=== PATIENT | female | born 1985 | race Caucasian/White ===

== ENCOUNTER 2020-05-02 16:00 | Inpatient (IN) | payer OTHER, SELFPAY ==
[~2020-05-02] VITALS: Ht 149.9 cm; Wt 68.0 kg
[2020-05-02] MEDS ORDERED: LACT1CAP63 PO (16:31)
[2020-05-02] MEDS ORDERED: PNV91TAB10 PO (16:31)
[2020-05-02] MEDS ORDERED: VITD400 PO (16:31)
[2020-05-02] MEDS ORDERED: CARBOPROST 250 MCG/ML AMP IM PRN (16:45)
[2020-05-02] MEDS ORDERED: LACTATED RINGERS 500 ML IV ONE (16:45)
[2020-05-02] MEDS ORDERED: METHYLERGONOVINE 0.2 MG/ML AMP IM PRN (16:45)
[2020-05-02] MEDS ORDERED: LACTATED RINGERS 500 ML IV SCH (16:57)
[2020-05-02 17:12] LABS: BASOPHILS % (AUTO) 0.2 % (0.0-2.0); EOSINOPHILS % (AUTO) 0.4 % (0.0-4.0); HEMATOCRIT 38.9 % (36-48); HEMOGLOBIN 12.8 g/dL (12.0-16.0); LYMPHOCYTES # (AUTO) 1.1 K/uL (2.5-16.5); LYMPHOCYTES % (AUTO) 13.3 % (20.5-51.1); MEAN CORPUSCULAR HEMOGLOBIN 27 pg (27-31); MEAN CORPUSCULAR HGB CONC 33 g/dL (33-37); MEAN CORPUSCULAR VOLUME 82.3 fL (80-94); MONOCYTES # (AUTO) 0.5 K/uL (0.8-1.0); MONOCYTES % (AUTO) 5.9 % (1.7-9.3); NEUTROPHILS # (AUTO) 6.5 K/uL (1.8-7.7); NEUTROPHILS % (AUTO) 80.2 % (42.2-75.2); PLATELET COUNT (AUTO) 178 K/uL (140-450); RED BLOOD CELL COUNT(AUTO) 4.73 MIL/uL (4.20-5.40); WHITE BLOOD COUNT (AUTO) 8.2 K/uL (4.8-10.8)
[2020-05-02 17:17] LABS: APPEARANCE,URINE CLEAR (CLEAR); BILIRUBIN,URINE NEGATIVE (NEGATIVE); BLOOD, URINE NEGATIVE (NEGATIVE); COLOR,URINE YELLOW (YELLOW); LEUKOCYTE ESTERASE ,URINE NEGATIVE (NEGATIVE); NITRITE, URINE NEGATIVE (NEGATIVE); UGLUCOSE NEGATIVE (NEGATIVE)
[2020-05-02 17:25] LABS: ALBUMIN 2.9 g/dL (3.4-5.0); CARBON DIOXIDE 22.8 mmol/L (21-32); CREATININE 0.5 mg/dL (0.6-1.3); POTASSIUM 3.8 mmol/L (3.5-5.1); TOTAL BILIRUBIN 0.2 mg/dL (0.0-1.0)
[2020-05-02 17:47] VITALS: BP 113/71
[2020-05-02] MEDS ORDERED: MISOPROSTOL 25 MCG TAB VG SCH (18:00)
[2020-05-02] MEDS ORDERED: OXYTOCIN 20 UNITS in LACTATED RINGERS 1,000 ML IV SCH (18:35)
[2020-05-02] MEDS ORDERED: ONDANSETRON 4 MG/2 ML VIAL IVP PRN (18:35)
[2020-05-02] MEDS ORDERED: MORPHINE SULFATE 5 MG/ML VIAL IVP PRN (18:35)
[2020-05-02] MEDS ORDERED: BLOOD GLUCOSE MONITORING 1 DEV DEV FS SCH (19:10)
[2020-05-02] MEDS: LACTATED RINGERS 1,000 ML IV SCH (19:55)
[2020-05-02] MEDS ORDERED: OXYTOCIN 20 UNITS/LR PREMIX 1,000 ML IV ONE (20:02)
[2020-05-02] MEDS ORDERED: MORPHINE SULFATE 10 MG/ML VIAL ONE (22:51)
[2020-05-03] MEDS: LACTATED RINGERS 1,000 ML IV SCH (00:47)
[2020-05-03] MEDS ORDERED: OXYTOCIN 10 UNITS/ML VIAL IM PRN (02:25)
[2020-05-03] MEDS ORDERED: TEMAZEPAM 15 MG CAP PO PRN (02:25)
[2020-05-03] MEDS ORDERED: BENZOCAINE/MENTHOL 20%-0.5% 60 GM CAN TP PRN (02:25)
[2020-05-03] MEDS ORDERED: METHYLERGONOVINE 0.2 MG/ML AMP IM PRN (02:25)
[2020-05-03] MEDS ORDERED: METHYLERGONOVINE 0.2 MG TAB PO PRN (02:25)
[2020-05-03] MEDS ORDERED: oxyCODONE/APAP 5/325 MG 1 TAB TAB PO PRN ×2 (02:25)
--- NOTE | 2020-05-03 08:49 | NUR ---
PATIENT HAS BEEN SCREENED AND CATEGORIZED LOW NUTRITION RISK. PATIENT WILL BE SEEN WITHIN 7 DAYS OF ADMISSION. 05/09/[address]
[2020-05-03] MEDS: IBUPROFEN 800 MG TAB PO PRN ×2 (09:05→17:42)
[2020-05-03] MEDS ORDERED: DOCUSATE SOD/SENNA 50/8.6 MG 1 TAB PO SCH (21:00)
[2020-05-04] MEDS: IBUPROFEN 800 MG TAB PO PRN (05:45)
[2020-05-04 05:56] LABS: HEMATOCRIT 37.7 % (36-48); HEMOGLOBIN 12.5 g/dL (12.0-16.0)
== END 2020-05-04 12:55 | disposition home or self-care (01) | DRG 806 ==
LOC: MLD 16:00 → MFCC 05-03 03:55
PROVIDERS: ADMIT Obstetrics & Gynecology; ATTEND Obstetrics & Gynecology
PROC: 10907ZC Drainage of Amniotic Fluid, Therapeutic from Products of Conception, Via Natural or Artificial Opening (ICD-10-PCS; principal; 2020-05-03)
PROC: 10D07Z6 Extraction of Products of Conception, Vacuum, Via Natural or Artificial Opening (ICD-10-PCS; 2020-05-03)
PROC: 3E033VJ Introduction of Other Hormone into Peripheral Vein, Percutaneous Approach (ICD-10-PCS; 2020-05-03)
PROC: 3E0234Z Introduction of Serum, Toxoid and Vaccine into Muscle, Percutaneous Approach (ICD-10-PCS; 2020-05-03)
DX: O76 Abnormality in fetal heart rate and rhythm complicating labor and delivery (principal); O41.03X0 Oligohydramnios, third trimester, not applicable or unspecified; Z37.0 Single live birth; O24.429 Gestational diabetes mellitus in childbirth, unspecified control; O99.62 Diseases of the digestive system complicating childbirth; K21.9 Gastro-esophageal reflux disease without esophagitis; O69.81X0 Labor and delivery complicated by cord around neck, without compression, not applicable or unspecified; Z20.822 Contact with and (suspected) exposure to COVID-19; Z3A.38 38 weeks gestation of pregnancy; Z23 Encounter for immunization
CPT/HCPCS: 36415; 80053; 81003; 85018; 85025; 86592; 86886; 86900; 86901; 90715; 96361; 96365; 96366; 96375; J2270; J2590; J7120